=== PATIENT | male | born 1960 | race Caucasian/White ===

== ENCOUNTER 2018-05-09 16:40 | Emergency (ER) | payer OTHER ==
[~2018-05-09] VITALS: Ht 177.8 cm; Wt 72.6 kg
[~2018-05-09 16:40] MED LIST: AMLODIPINE BESYL5 MG PO; HYDROXYZINE PAM50 MG PO; HYZAAR 50-12.51 TAB PO; NAPROSYN500 MG PO; PROPRANOLOL 8080 MG PO; SERTRALINE HCL100 MG PO; TIZANIDINE HCL4 M1 PO; ULTRAM ER200 MG PO
[2018-05-09] MEDS ORDERED: ALEVE220 MG PO (17:05)
[2018-05-09] MEDS ORDERED: BACTRIM DS TAB1 EACH PO (17:05)
[2018-05-09 17:57] VITALS: BP 146/99
== END 2018-05-09 17:58 | disposition home or self-care (01) ==
LOC: M.ERS 16:40
DX: T63.301D Toxic effect of unspecified spider venom, accidental (unintentional), subsequent encounter (principal); L08.9 Local infection of the skin and subcutaneous tissue, unspecified; I10 Essential (primary) hypertension; M19.90 Unspecified osteoarthritis, unspecified site; Z85.46 Personal history of malignant neoplasm of prostate; F17.210 Nicotine dependence, cigarettes, uncomplicated

== ENCOUNTER 2019-03-25 16:07 | Emergency (ER) | payer OTHER ==
[~2019-03-25] VITALS: Ht 177.8 cm; Wt 83.9 kg
[~2019-03-25 16:07] MED LIST changes: +ALEVE220 MG PO; +BACTRIM DS TAB1 EACH PO
[2019-03-25 17:06] LABS: ABSOLUTE BASOPHILS 0.1 thou/uL (0.0-0.2); ABSOLUTE EOSINOPHILS 0.1 thou/uL (0.0-0.7); ABSOLUTE LYMPHOCYTES 1.8 thou/uL (0.8-5.3); ABSOLUTE MONOCYTES 0.9 thou/uL (0.0-1.2); ABSOLUTE NEUTROPHILS 5.6 thou/uL (1.6-8.1); EOSINOPHILS 0.9 %; HEMATOCRIT 47.3 % (42.0-52.0); HEMOGLOBIN 15.8 gm/dL (14.0-18.0); LYMPHOCYTES 20.7 %; MCH 28.8 pg (26.0-34.0); MCHC 33.5 g/dL (28.0-37.0); MCV 86.1 fL (80.0-100.0); MONOCYTES 11.1 %; MPV 8.4 fl. (7.2-11.1); NUCLEATED RBCS 0 /100WBC; PLATELET COUNT* 291 thou/uL (150-400); POLYS 66.3 %; RBC 5.49 mil/uL (4.50-6.00); RDW-CV 14.6 % (10.5-14.5); WBC 8.5 thou/uL (4.0-11.0)
[2019-03-25 17:14] LABS: ANION GAP 2 mmol/L (7-16); BUN 14 mg/dL (7-18); CALCIUM 8.3 mg/dL (8.5-10.1); CHLORIDE 104 mmol/L (98-107); CO2 29 mmol/L (21-32); CREATININE 1.1 mg/dL (0.6-1.3); GLUCOSE 95 mg/dL (70-99); POTASSIUM 3.8 mmol/L (3.5-5.1); SODIUM 135 mmol/L (136-145)
[2019-03-25 17:23] LABS: ALBUMIN 3.3 g/dL (3.4-5.0); ALKALINE PHOSPHATASE 86 U/L (46-116); SGOT 14 U/L (15-37); SGPT 24 U/L (30-65); TOTAL BILIRUBIN 0.5 mg/dL (<0.1-1.0); TOTAL PROTEIN 6.7 g/dL (6.4-8.2); TROPONIN-I LEVEL <0.06 ng/mL (<0.06)
[2019-03-25] MEDS ORDERED: NORCO 5-325 TA1 EAC1 PO (18:37)
[2019-03-25] MEDS ORDERED: NAPROSYN500 MG PO (18:37)
[2019-03-25] MEDS ORDERED: CLEOCIN HCL150 MG PO (18:37)
[2019-03-25 18:50] VITALS: BP 130/65
--- NOTE | 2019-03-26 12:51 | EKG ---
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 : 1960 Requested By: Rochelle Torres Order Number: [id number] MD: Keny Jones Measurements Intervals [place] Rate: 95 P: 72 NV: 127 QRS: 47 QRSD: 94 T: 62 QT: 369 QTc: 464 Interpretive Statements Sinus rhythm Multiple premature supraventricular complexes Probable left atrial enlargement Probable left ventricular hypertrophy ST elevation, consider early repolarization No previous ECG available for comparison Electronically Signed On 03-26-2019 12:51:09 CDT by Keny Jones [email or web address] <ELECTRONICALLY SIGNED> By: Keny Jones MD, [facility] 03/26/19 1251 1624 162 Keny Jones MD, FACC /EPI
== END 2019-03-25 18:51 | disposition home or self-care (01) ==
LOC: M.ERS 16:07
PROVIDERS: Nurse Practitioner Family
DX: L03.113 Cellulitis of right upper limb (principal); I10 Essential (primary) hypertension; M13.842 Other specified arthritis, left hand; M13.841 Other specified arthritis, right hand; F17.210 Nicotine dependence, cigarettes, uncomplicated; Z85.118 Personal history of other malignant neoplasm of bronchus and lung; Z85.46 Personal history of malignant neoplasm of prostate

== ENCOUNTER 2019-04-17 03:45 | Emergency (ER) | payer OTHER ==
[~2019-04-17] VITALS: Ht 180.3 cm; Wt 83.9 kg
[~2019-04-17 03:45] MED LIST changes: +CLEOCIN HCL150 MG PO; +NORCO 5-325 TA1 EAC1 PO
[2019-04-17 04:39] LABS: ABSOLUTE BASOPHILS 0.1 thou/uL (0.0-0.2); ABSOLUTE EOSINOPHILS 0.1 thou/uL (0.0-0.7); ABSOLUTE LYMPHOCYTES 2.1 thou/uL (0.8-5.3); ABSOLUTE MONOCYTES 0.8 thou/uL (0.0-1.2); ABSOLUTE NEUTROPHILS 5.7 thou/uL (1.6-8.1); BASOPHILS 0.9 %; EOSINOPHILS 1.4 %; HEMATOCRIT 47.6 % (42.0-52.0); HEMOGLOBIN 15.4 gm/dL (14.0-18.0); LYMPHOCYTES 23.9 %; MCH 28.4 pg (26.0-34.0); MCHC 32.4 g/dL (28.0-37.0); MCV 87.7 fL (80.0-100.0); MONOCYTES 9.4 %; NUCLEATED RBCS 0 /100WBC; PLATELET COUNT* 283 thou/uL (150-400); POLYS 64.4 %; RBC 5.43 mil/uL (4.50-6.00); RDW-CV 14.6 % (10.5-14.5); WBC 8.9 thou/uL (4.0-11.0)
[2019-04-17 04:40] LABS: URINE BILIRUBIN NEGATIVE (Negative); URINE BLOOD NEGATIVE (Negative); URINE CLARITY CLEAR; URINE COLOR YELLOW; URINE GLUCOSE-RANDOM TRACE (Negative); URINE KETONES NEGATIVE (Negative); URINE LEUKOCYTES-REFLEX NEGATIVE (Negative); URINE NITRITE-REFLEX NEGATIVE (Negative); URINE PROTEIN TRACE (Negative); URINE SPECIFIC GRAVITY >= 1.030 (1.005-1.030); URINE UROBILINOGEN 0.2 E.U./dl (0.2-1.0)
[2019-04-17 04:50] LABS: AMP/METHAMP POSITIVE (Negative); BARBITURATES Negative (Negative); BENZODIAZEPINES Negative (Negative); COCAINE Negative (Negative); METHADONE Negative (Negative); OPIATES Negative (Negative); PCP Negative (Negative); THC Negative (Negative)
[2019-04-17 04:52] LABS: ANION GAP 10 mmol/L (7-16); BUN 14 mg/dL (7-18); CALCIUM 8.6 mg/dL (8.5-10.1); CHLORIDE 106 mmol/L (98-107); CO2 27 mmol/L (21-32); GLUCOSE 140 mg/dL (70-99); POTASSIUM 3.7 mmol/L (3.5-5.1); SODIUM 143 mmol/L (136-145)
[2019-04-17 05:03] LABS: ALBUMIN 3.5 g/dL (3.4-5.0); ALKALINE PHOSPHATASE 93 U/L (46-116); NT-PRO BRAIN NAT PEPTIDE 2534 pg/mL (<300); SGOT 19 U/L (15-37); SGPT 29 U/L (30-65); TOTAL BILIRUBIN 0.6 mg/dL (<0.1-1.0); TOTAL PROTEIN 6.5 g/dL (6.4-8.2); TROPONIN-I LEVEL <0.06 ng/mL (<0.06)
[2019-04-17 05:44] LABS: INR 1.1; PROTIME 11.5 Seconds (9.20-11.50)
[2019-04-17] MEDS ORDERED: TRAMADOL 50 MG50 MG PO (05:58)
[2019-04-17 06:06] VITALS: BP 158/89
--- NOTE | 2019-04-17 12:24 | EKG ---
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: JOSE F : 1960 Requested By: Katelynn Patel Order Number: [id number] MD: Donte Cunningham Measurements Intervals [place] Rate: 78 P: 39 PA: 134 QRS: 14 QRSD: 96 T: 67 QT: 423 QTc: 482 Interpretive Statements Sinus rhythm Ventricular trigeminy Probable left ventricular hypertrophy ST elevation, consider anterior injury Borderline prolonged QT interval Compared to ECG 03/25/2019 16:24:32 Ventricular premature complex(es) now present Myocardial infarct finding now present Atrial premature complex(es) no longer present ST (T wave) deviation still present Electronically Signed On 04-17-2019 12:24:29 CDT by Donte Cunningham [email or web address] <ELECTRONICALLY SIGNED> By: Misael Cunningham MD, [facility] 04/17/19 1224 2 Misael Cunningham MD, [facility] /EPI
--- NOTE | 2019-04-17 12:25 | EKG ---
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 : 1960 Requested By: Katelynn Patel Order Number: [id number] MD: Donte Cunningham Measurements Intervals [place] Rate: 103 P: 53 HI: 137 QRS: 21 QRSD: 89 T: 67 QT: 392 QTc: 513 Interpretive Statements Sinus tachycardia Multiform ventricular premature complexes Probable left atrial enlargement Probable left ventricular hypertrophy Compared to ECG 03/25/2019 16:24:32 Ventricular premature complex(es) now present Sinus rhythm no longer present Atrial premature complex(es) no longer present ST (T wave) deviation no longer present Electronically Signed On 04-17-2019 12:24:47 CDT by Donte Cunningham [email or web address] <ELECTRONICALLY SIGNED> By: Misael Cunningham MD, [facility] 04/17/19 1224 0548 0548 Misael Cunningham MD, [facility] /EPI
== END 2019-04-17 06:06 | disposition home or self-care (01) ==
LOC: M.ERS 03:45
PROVIDERS: Emergency Medicine
DX: M25.521 Pain in right elbow (principal); R07.89 Other chest pain; I10 Essential (primary) hypertension; Z85.118 Personal history of other malignant neoplasm of bronchus and lung; Z85.46 Personal history of malignant neoplasm of prostate; Z79.899 Other long term (current) drug therapy